=== PATIENT | male | born 1970 | race African-American/Black ===

== ENCOUNTER 2021-10-16 13:04 | Inpatient (IN) | payer OTHER ==
[~2021-10-16] VITALS: Ht 177.8 cm; Wt 62.1 kg
[2021-10-16] MEDS ORDERED: ACETAMINOPHEN 500MG TABLET PO ONE (14:00)
[2021-10-16] MEDS ORDERED: TETANUS, DIPHTHERIA, PERTUSSIS VAC/PF 0.5ML (>10YR OLD) IM ONE (14:00)
[2021-10-16] MEDS ORDERED: LEVETIRACETAM 1000MG PREMIX 100 ML IV ONE (15:00)
[2021-10-16] MEDS ORDERED: LEVETIRACETAM 1000MG PREMIX 100 ML IV NR (15:15)
[2021-10-16] MEDS ORDERED: MORPHINE SULFATE 4 MG/ML CPJ (NOT FOR IM USE) IV ONE (15:30)
[2021-10-16] MEDS ORDERED: ONDANSETRON HCL 4MG/2ML INJ IV ONE (15:30)
[2021-10-16 15:40] LABS: BASOPHILS % 0.5 % (0.0-2.0); EOSINOPHILS % 0.1 % (0.0-5.0); HEMATOCRIT. 42.5 % (42.0-52.0); HEMOGLOBIN. 14.2 g/dL (14.0-18.0); LYMPHOCYTES % 12.5 % (20.0-50.0); MEAN CORPUSCULAR HEMOGLOBIN 33.1 pg (28.0-32.0); MEAN CORPUSCULAR VOLUME 99.3 fL (80.0-94.0); MEAN PLATELET VOLUME 8.6 fl (7.4-10.4); MONOCYTES % 11.8 % (2.0-8.0); NEUTROPHILS % 75.1 % (40.0-76.0); PLATELET 277 x1000/uL (130-400); RED BLOOD CELL COUNT 4.28 mill/uL (4.7-6.1); RED CELL DISTRIBUTION WIDTH 13.7 % (11.6-14.6)
[2021-10-16 15:47] LABS: CHLORIDE 107 mEq/L (98-107)
[2021-10-16 15:51] LABS: PARTIAL THROMBOPLASTIN TIME 26.5 sec (23.4-31.0); PROTHROMBIN TIME 10.7 sec (9.6-11.0)
[2021-10-16] MEDS ORDERED: NICARDIPINE 100 MG in SODIUM CHLORIDE 0.9% 60 ML IV PRN ×2 (16:30→16:45)
[2021-10-16] MEDS ORDERED: MORPHINE SULFATE 2 MG/ML CPJ (NOT FOR IM USE) IV PRN ×2 (16:30→20:15)
[2021-10-16] MEDS ORDERED: NALOXONE HCL 0.4MG/ML VIAL IV PRN (16:45)
[2021-10-16] MEDS ORDERED: HYDRALAZINE 20MG/ML VIAL IV ONE (16:45)
[2021-10-16] MEDS: DEXT 5%/LACTATED RINGERS 1,000 ML IV SCH (16:57)
[2021-10-16] MEDS ORDERED: LEVETIRACETAM 500MG PREMIX 100 ML IV SCH (17:00)
[2021-10-16 19:00] LABS: CLARITY URINE CLEAR (CLEAR); COLOR URINE YELLOW (YELLOW); KETONES URINE TRACE (NEGATIVE); LEUKOCYTE ESTERASE URINE NEGATIVE (NEGATIVE); NITRITE URINE NEGATIVE (NEGATIVE); OCCULT BLOOD URINE NEGATIVE (NEGATIVE); PH URINE 6.5 (4.5-8.0); PROTEIN URINE TRACE (NEGATIVE); SPECIFIC GRAVITY URINE 1.018 (1.005-1.030); UROBILINOGEN URINE 0.2 E.U./dL (0.2-1.0)
[2021-10-16 19:10] LABS: *AMPHETAMINES SCREEN URINE NEGATIVE (NEGATIVE); *BARBITURATES SCREEN URINE NEGATIVE (NEGATIVE); *BENZODIAZEPINES SCREEN URINE NEGATIVE (NEGATIVE); CANNABINOID URINE SCREEN NEGATIVE (NEGATIVE); METHADONE URINE SCREEN NEGATIVE (NEGATIVE); OPIATES URINE SCREEN PRESUMTIVE POSITIVE (NEGATIVE)
[2021-10-16 19:12] LABS: *COCAINE SCREEN URINE PRESUMTIVE POSITIVE (NEGATIVE); PHENCYCLIDINE URINE SCREEN PRESUMTIVE POSITIVE (NEGATIVE)
[2021-10-16] MEDS: LEVETIRACETAM 500MG PREMIX 100 ML IV SCH (21:08)
[2021-10-16 23:00] VITALS: BP 140/92
[2021-10-16 23:15] VITALS: BP 146/82
[2021-10-16 23:30] VITALS: BP 146/94
[2021-10-16 23:45] VITALS: BP 148/90
[2021-10-17] VITALS (61 sets, daily range): BP systolic 118–163; BP diastolic 60–104
[2021-10-17] MEDS ORDERED: MORPHINE SULFATE 2 MG/ML CPJ (NOT FOR IM USE) IV PRN (00:15)
[2021-10-17] MEDS: MORPHINE SULFATE 2 MG/ML CPJ (NOT FOR IM USE) IV PRN ×3 (00:23→09:00)
[2021-10-17] MEDS ORDERED: METO-396 PO (06:05)
[2021-10-17] MEDS ORDERED: ASPI-1497 PO (06:05)
[2021-10-17] MEDS: DEXT 5%/LACTATED RINGERS 1,000 ML IV SCH (08:42)
[2021-10-17] MEDS: PANTOPRAZOLE SODIUM 40 MG/VIAL IV SCH (08:42)
[2021-10-17] MEDS: LEVETIRACETAM 500MG PREMIX 100 ML IV SCH ×2 (08:42→20:25)
[2021-10-17] MEDS: ACETAMINOPHEN 325MG TABLET PO PRN (20:33)
[2021-10-18] VITALS (41 sets, daily range): BP systolic 121–151; BP diastolic 70–97
[2021-10-18] MEDS: LEVETIRACETAM 500MG PREMIX 100 ML IV SCH (08:01)
[2021-10-18] MEDS: PANTOPRAZOLE SODIUM 40 MG/VIAL IV SCH (08:01)
[2021-10-18] MEDS ORDERED: AMLO5TAB88 MT (10:20)
[2021-10-18] MEDS ORDERED: TRAM50TA3 MT (10:22)
[2021-10-18] MEDS ORDERED: KEPP500 MT (10:22)
[2021-10-18] MEDS ORDERED: TRAMADOL 50MG TABLET PO PRN (10:30)
[2021-10-18] MEDS ORDERED: AMLODIPINE 5MG TABLET PO SCH (10:30)
[2021-10-18] MEDS: ACETAMINOPHEN 325MG TABLET PO PRN (15:44)
[2021-10-18] MEDS ORDERED: LEVETIRACETAM 500MG PREMIX 100 ML IV SCH (18:30)
== END 2021-10-18 21:29 | disposition home or self-care (01) | DRG 87 ==
LOC: ER 13:04 → MICUSO 19:05 → EDBEDREQ 19:30 → EDBEDREQTM 19:30 → ENRESERV 20:53
PROVIDERS: ADMIT Internal Medicine; ATTEND Internal Medicine
PROC: 0HQ0XZZ Repair Scalp Skin, External Approach (ICD-10-PCS; principal; 2021-10-16)
DX: S06.6X0A Traumatic subarachnoid hemorrhage without loss of consciousness, initial encounter (principal); S01.01XA Laceration without foreign body of scalp, initial encounter; I10 Essential (primary) hypertension; F17.210 Nicotine dependence, cigarettes, uncomplicated; Z20.822 Contact with and (suspected) exposure to COVID-19; X58.XXXA Exposure to other specified factors, initial encounter; F19.10 Other psychoactive substance abuse, uncomplicated; Z60.2 Problems related to living alone; F43.10 Post-traumatic stress disorder, unspecified; Z79.899 Other long term (current) drug therapy; I25.2 Old myocardial infarction; Z71.51 Drug abuse counseling and surveillance of drug abuser; Z91.030 Bee allergy status; Z91.018 Allergy to other foods; Y93.89 Activity, other specified; Y92.89 Other specified places as the place of occurrence of the external cause; Y99.8 Other external cause status
CPT/HCPCS: 36415; 71045; 73030; 80053; 80305; 81003; 85025; 87426; 90715; 93005; 97162; 99291; C9113; J0360; J1953; J2270; J2405

== ENCOUNTER 2022-01-03 12:12 | Emergency (ER) | payer MEDICAID, OTHER ==
[~2022-01-03] VITALS: Ht 177.8 cm; Wt 75.0 kg
[~2022-01-03 12:12] MED LIST: AMLO5TAB88 MT; KEPP500 MT; TRAM50TA3 MT
[2022-01-03 12:14] VITALS: BP 137/90
== END 2022-01-03 13:15 | disposition left against medical advice (07) ==
LOC: ER 12:12
DX: Z53.21 Procedure and treatment not carried out due to patient leaving prior to being seen by health care provider (principal)

== ENCOUNTER 2025-09-23 20:35 | Emergency (ER) | payer SELFPAY ==
[~2025-09-23] VITALS: Ht 175.3 cm; Wt 75.0 kg
[2025-09-23 20:37] VITALS: O2SAT 98
[2025-09-23] MEDS ORDERED: NALO4SPR BOTHNSTRLS (21:29)
[2025-09-23 22:50] VITALS: BP 115/79; PULSE 96; RESP 14; TEMP 36.7; O2SAT 99
== END 2025-09-23 22:56 | disposition home or self-care (01) ==
LOC: ER 20:35
DX: T40.2X1A Poisoning by other opioids, accidental (unintentional), initial encounter (principal); Z91.030 Bee allergy status; X58.XXXA Exposure to other specified factors, initial encounter; Y93.89 Activity, other specified; Y92.89 Other specified places as the place of occurrence of the external cause; Y99.8 Other external cause status
CPT/HCPCS: 99283